=== PATIENT | female | born 1975 | race Caucasian/White ===

== ENCOUNTER 2018-08-04 06:11 | Observation (INO) | payer OTHER ==
[2018-08-03 13:15] VITALS: BMI 25.3
[2018-08-04] MEDS ORDERED: LIDOCAINE HCL/PF 2% SDV 5ML VIAL ONE (07:46)
[2018-08-04] MEDS ORDERED: PROPOFOL 20 ML ONE (07:46)
[2018-08-04] MEDS ORDERED: MIDAZOLAM HCL 2 MG/2 ML SINGLE DOSE VIAL ONE (07:47)
--- NOTE | 2018-08-04 07:56 | HP ---
Admitting History and Physical - Admission Chief Complaint: Prolonged and heavy menses History of Present Illness: 42 yo Para 3 with h/o prolonged and heavy menses is pre op for endometrial ablation. History Source: Patient Limitations to Obtaining History: No Limitations - Past Medical History ...LMP: 08/02/18 ...: No ...: 4 ...Para: 3 - Past Surgical History Past Surgical History: Yes: Cholecystectomy, Tubal Ligation - Smoking History Smoking history: Never smoked Have you smoked in the past 12 months: No - Alcohol/Substance Use Hx Alcohol Use: No History of Substance Use: reports: None - Social History History of Recent Travel: No Home Medications - Allergies Allergies/Adverse Reactions: Allergies Allergy/AdvReac Type Severity Reaction Status Date / Time No Known Drug Allergies Allergy Verified 08/03/18 13:19 shrimp Allergy Verified 08/04/18 06:53 - Home Medications Home Medications: Ambulatory Orders Cyanocobalamin [Vitamin B12 -] 1,000 mcg PO DAILY 08/03/18 Ferrous Sulfate [Iron] 325 mg PO BID 08/03/18 Multivit-Min/Iron/Folic/[id number] [Hair, Skin and Nails Tablet] 1 each PO DAILY 05/15 Family Disease History - Family Disease History Family History: Unremarkable Review of Systems - Review of Systems Constitutional: reports: No Symptoms Eyes: reports: No Symptoms HENT: reports: No Symptoms Neck: reports: No Symptoms Cardiovascular: reports: No Symptoms Respiratory: reports: No Symptoms Gastrointestinal: reports: No Symptoms Genitourinary: reports: Vaginal Bleeding Breasts: reports: No Symptoms Reported Musculoskeletal: reports: No Symptoms Integumentary: reports: No Symptoms Neurological: reports: No Symptoms Endocrine: reports: No Symptoms Hematology/Lymphatic: reports: No Symptoms Psychiatric: reports: No Symptoms Pain Intensity: 0 Physical Examination Constitutional: Yes: Well Nourished Eyes: Yes: Conjunctiva Clear HENT: Yes: Atraumatic Neck: Yes: Supple Cardiovascular: Yes: Regular Rate and Rhythm Respiratory: Yes: Regular Gastrointestinal: Yes: Normal Bowel Sounds ...Rectal Exam: Yes: WNL Renal/: Yes: WNL Breast(s): Yes: WNL Musculoskeletal: Yes: WNL Extremities: Yes: WNL Neurological: Yes: Alert, Oriented ...Motor Strength: WNL Psychiatric: Yes: Alert, Oriented Problem List - Problems (1) Menorrhagia with regular cycle Code(s): N92.0 - EXCESSIVE AND FREQUENT MENSTRUATION WITH REGULAR CYCLE Assessment/Plan Menorrhagia Pre op for endometrial ablation Consent signed Anesthesia to see patient
[2018-08-04] MEDS ORDERED: KETOROLAC TROMETHAMINE 30 MG/1 ML VIAL ONE (08:13)
[2018-08-04] MEDS ORDERED: DEXAMETHASONE SOD PHOSPHATE 4 MG/1 ML VIAL ONE (08:13)
[2018-08-04] MEDS ORDERED: ONDANSETRON 4 MG/2 ML VIAL ONE (08:13)
--- NOTE | 2018-08-04 08:53 | OP ---
Operative Note - Note: Operative Date: 08/04/18 Pre-Operative Diagnosis: Menorrhagia Operation: Hysteroscopic endometrial ablation Post-Operative Diagnosis: Same as Pre-op Surgeon: Erica Camarillo Anesthesia: General Specimens Removed: None Estimated Blood Loss (mls): 5
[2018-08-04] MEDS ORDERED: ACETAMINOPHEN 325 MG TABLET (FP) PO PRN ×2 (08:59→14:59)
[2018-08-04] MEDS ORDERED: ONDANSETRON 4 MG/2 ML VIAL IVPUSH PRN ×2 (08:59→14:59)
[2018-08-04] MEDS ORDERED: oxyCODONE HCL 5 MG TABLET PO PRN ×2 (08:59→14:59)
[2018-08-04] MEDS ORDERED: LACTATED RINGERS SOLUTION 1,000 ML IV SCH (09:00)
[2018-08-04] MEDS ORDERED: NALOXONE HCL 0.4 MG/ML VIAL ONE (09:25)
--- NOTE | 2018-08-04 11:30 | EKG ---
Test Reason : Blood Pressure : / mmHG Vent. Rate : 070 BPM Atrial Rate : 070 BPM P-R Int : 132 ms QRS Dur : 070 ms QT Int : 408 ms P-R-T Axes : 038 -06 -09 degrees QTc Int : 440 ms NORMAL SINUS RHYTHM LOW VOLTAGE QRS POSSIBLE INFERIOR INFARCT , AGE UNDETERMINED NONSPECIFIC T WAVE ABNORMALITY ABNORMAL ECG NO PREVIOUS ECGS AVAILABLE Confirmed by ELLE FERRARA MD ([id number]) on 08/04/2018 11:29:46 AM Referred By: Erica Camarillo Confirmed By:ELLE FERRARA MD
--- NOTE | 2018-08-04 11:38 | CON.CARD ---
Consult Consult Specialty:: Cardiology Reason for Consultation:: hyoxia, new ekg changes - History of Present Illness History of Present Illness: 42 yo Para 3 with h/o prolonged and heavy menses s/p endometrial ablation developed hypoxia requiring narcan and ambu ventilation developed new ekg changes on tele. ekg inverted t waves V3 -V4 - no old one to compare.. 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, CVA, Dementia, Migraine, Multiple Sclerosis, Peripheral Neuropathy, Parkinson's, Seizure, Syncope, TIA, Vertigo, Other Cardio/Vascular: No: AFIB, Aneurysm, Aortic Insufficiency, Aortic Stenosis, CAD , CHF, Deep Vein Thrombosis, HTN, Hyperlipdemia, CT, Mitral Insufficiency, Mitral Stenosis, Murmur, Pulmonary Hypertension, Other Pulmonary: No: Asthma, Bronchitis, Cancer, COPD, O2 Dependent, Pneumonia, Previously Intubated, Pulmonary Embolus, Pulmonary Fibrosis, Sleep Apnea, Other Gastrointestinal: No: Ascites, Cancer, Constipation, Crohn's Disease, Diverticulitis, Diverticulosis, Esophageal Varices, Gastritis, GERD, GI Bleed, Hemorrhoids, Hiatal Hernia, Inflamatory Bowel Disease, Irritable Bowel Disease, Pancreatitis, Peptic Ulcer Disease, Ulcerative Colitis, Other Hepatobiliary: No: Cirrhosis, Cholelithiasis, Cholecystitis, Choledocholithiasis , Hepatitis A, Hepatitis B, Hepatitis C, Other Renal/: No: Renal Failure, Renal Inusuff, BPH, Cancer, Hematuria, Hemodialysis , Neurogenic Bladder, Renal Calculi, UTI, Other Reproductive: No: Ectopic , Endometriosis, Fibroids, PID, Polycystic Ovary Syndrome, Postmenopausal, Other ...LMP: 08/02/18 ...: No Heme/Onc: No: Anemia, B12 Deficiency, Bleeding Disorder, Cancer, Current Chemotherapy, Current Radiation Therapy, Hemochromatosis, Hypercoaguable State, Myeloproliferative Synd, Sickle Cell Disease, Sickle Cell Trait, Thrombocytopenia, Other Infectious Disease: No: AIDS, C-Diff, Herpes Zoster, HIV, MRSA, STD's, Tuberculosis, VREF, Other Psych: No: Addictions, Anxiety, Bipolar, Depression, Panic, Psychosis, Schizophrenia, Other Musculoskeletal: No: Bursitis, Chronic low back pain, Hemiparesis, Hemiplegia, Osteoarthritis, Paraplegia, Other Rheumatology: No: Fibromyalgia, Gout, Lupus, Rheumatoid Arthritis, Sarcoidosis, Vasculitis, Other ENT: No: Allergic Rhinitis, Sinusitis, Other Endocrine: No: [place]'s Disease, Faisal's Disease, Diabetes Insipidus, Diabetes Mellitus, Hyperparathyroidism, Hyperthyroidism, Hypothyroidism, Osteopenia, SIADH, Other Dermatology: No: Basal Cell, Cellulitis, Eczema, Melanoma, Psoriasis, Squamous Cell, Other - Past Surgical History Past Surgical History: Yes: Cholecystectomy, Tubal Ligation - Alcohol/Substance Use Hx Alcohol Use: No History of Substance Use: reports: None - Smoking History Smoking history: Never smoked Have you smoked in the past 12 months: No - Social History History of Recent Travel: No Home Medications - Allergies Allergies/Adverse Reactions: Allergies Allergy/AdvReac Type Severity Reaction Status Date / Time No Known Drug Allergies Allergy Verified 08/03/18 13:19 shrimp Allergy Verified 08/04/18 06:53 - Home Medications Home Medications: Ambulatory Orders Cyanocobalamin [Vitamin B12 -] 1,000 mcg PO DAILY 08/03/18 Ferrous Sulfate [Iron] 325 mg PO BID 08/03/18 Multivit-Min/Iron/Folic/Lie364 [Hair, Skin and Nails Tablet] 1 each PO DAILY 05/15 Review of Systems - Review of Systems Constitutional: reports: No Symptoms Eyes: reports: No Symptoms HENT: reports: No Symptoms Neck: reports: No Symptoms Cardiovascular: reports: Chest Pain (occasional cp on and off) Respiratory: reports: No Symptoms Gastrointestinal: reports: No Symptoms Genitourinary: reports: No Symptoms Breasts: reports: No Symptoms Reported Musculoskeletal: reports: No Symptoms Integumentary: reports: No Symptoms Neurological: reports: No Symptoms Endocrine: reports: No Symptoms Hematology/Lymphatic: reports: No Symptoms Psychiatric: reports: No Symptoms Vital Signs: VSS Constitutional: Yes: Well Nourished, No Distress, Calm Eyes: Yes: WNL, Conjunctiva Clear, EOM Intact HENT: Yes: WNL, Atraumatic, Normocephalic Neck: Yes: WNL, Supple, Trachea Midline Respiratory: Yes: WNL, Regular, CTA Bilaterally Gastrointestinal: Yes: WNL, Normal Bowel Sounds Renal/: Yes: WNL Cardiovascular: Yes: WNL, Regular Rate and Rhythm Musculoskeletal: Yes: WNL Extremities: Yes: WNL Integumentary: Yes: WNL Neurological: Yes: WNL, Alert, Oriented ...Motor Strength: WNL Psychiatric: Yes: WNL, Alert, Oriented Imaging - Results EKG: Image Reviewed (sr inverted t wave v3 rep abn V4) Problem List - Problems (1) Menorrhagia with regular cycle Code(s): N92.0 - EXCESSIVE AND FREQUENT MENSTRUATION WITH REGULAR CYCLE Assessment/Plan 42 yo Para 3 with h/o prolonged and heavy menses s/p endometrial ablation developed hypoxia requiring narcan and ambu ventilation developed new ekg changes on tele. ekg inverted t waves V3 -V4 - no old one to compare. Plan echo r/o mi tele if stable can be d/c in am and f/u for ECHO ST as outpatient.
--- NOTE | 2018-08-04 14:09 | CONSULT ---
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 EKG shows inverted T waves in v3, v4. - History Source History Provided By: Patient Limitations to Obtaining History: No Limitations - Past Medical History ...LMP: 08/02/18 ...: No Heme/Onc: Yes: Anemia - Past Surgical History Past Surgical History: Yes: Cholecystectomy, Tubal Ligation - Alcohol/Substance Use Hx Alcohol Use: No History of Substance Use: reports: None - Smoking History Smoking history: Never smoked Have you smoked in the past 12 months: No - Social History Usual Living Arrangement: With Child ADL: Independent Occupation: school aid History of Recent Travel: No Home Medications - Allergies Allergies/Adverse Reactions: Allergies Allergy/AdvReac Type Severity Reaction Status Date / Time No Known Drug Allergies Allergy Verified 08/03/18 13:19 shrimp Allergy Verified 08/04/18 06:53 - Home Medications Home Medications: Ambulatory Orders Cyanocobalamin [Vitamin B12 -] 1,000 mcg PO DAILY 08/03/18 Ferrous Sulfate [Iron] 325 mg PO BID 08/03/18 Multivit-Min/Iron/Folic/Xuk201 [Hair, Skin and Nails Tablet] 1 each PO DAILY 05/15 Review of Systems - Review of Systems Constitutional: reports: Lethargy Eyes: reports: No Symptoms HENT: reports: No Symptoms Neck: reports: No Symptoms Cardiovascular: reports: No Symptoms Respiratory: reports: No Symptoms Gastrointestinal: reports: No Symptoms Genitourinary: reports: No Symptoms Musculoskeletal: reports: No Symptoms Integumentary: reports: No Symptoms Neurological: reports: No Symptoms Endocrine: reports: No Symptoms Hematology/Lymphatic: reports: No Symptoms Psychiatric: reports: No Symptoms Physical Exam Vital Signs: Vital Signs Temperature 97.7 F 08/04/18 08:49 Pulse Rate 69 08/04/18 12:35 Respiratory Rate 18 08/04/18 12:35 Blood Pressure 106/65 08/04/18 12:35 O2 Sat by Pulse Oximetry (%) 98 08/04/18 12:35 Constitutional: Yes: Calm Eyes: Yes: Conjunctiva Clear HENT: Yes: Atraumatic Neck: Yes: Supple Cardiovascular: Yes: Regular Rate and Rhythm, S1, S2 Respiratory: Yes: Regular, CTA Bilaterally, On Nasal O2 Gastrointestinal: Yes: Normal Bowel Sounds, Soft Renal/: Yes: Vaginal Bleeding (scant on abd pad) Musculoskeletal: Yes: WNL Edema: No Neurological: Yes: Alert, Oriented, Cran Nerves II-XII Intact Imaging - Results EKG: Report Reviewed Assessment/Plan Assessment: 42 year old female admitted with EKG changes Plan: 1. EKG changes - ECHO done, report pending - Serial cardiac enzymes r/o mi - If above work up neg can DC home with ECHO CT as outpt - Cardiac monitoring - Cardiology consulted appreciated Visit type - Emergency Visit Emergency Visit: Yes Care time: The patient presented to the Emergency Department on the above date and was hospitalized for further evaluation of their emergent condition. - New Patient This patient is new to me today: Yes Date on this admission: 08/04/18 - Critical Care Critical Care patient: No
--- NOTE | 2018-08-04 15:30 | HP ---
Admitting History and Physical - Admission History of Present Illness: This is a 42 year old female Para 3 with pmhx of anemia, metomenorrhagia, admitted after endometrial ablation. 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 EKG shows inverted T waves in v3, v4. History Source: Patient Limitations to Obtaining History: No Limitations - Past Medical History ...LMP: 08/02/18 ...: No ...: 4 ...Para: 3 Heme/Onc: Yes: Anemia - Past Surgical History Past Surgical History: Yes: Cholecystectomy, Tubal Ligation - Smoking History Smoking history: Never smoked Have you smoked in the past 12 months: No - Alcohol/Substance Use Hx Alcohol Use: No History of Substance Use: reports: None - Social History ADL: Independent Occupation: school aid History of Recent Travel: No Home Medications - Allergies Allergies/Adverse Reactions: Allergies Allergy/AdvReac Type Severity Reaction Status Date / Time No Known Drug Allergies Allergy Verified 08/03/18 13:19 shrimp Allergy Verified 08/04/18 06:53 - Home Medications Home Medications: Ambulatory Orders Cyanocobalamin [Vitamin B12 -] 1,000 mcg PO DAILY 08/03/18 Ferrous Sulfate [Iron] 325 mg PO BID 08/03/18 Multivit-Min/Iron/Folic/Rxy966 [Hair, Skin and Nails Tablet] 1 each PO DAILY 05/15 Review of Systems Findings/Remarks: - Review of Systems Constitutional: reports: Lethargy Eyes: reports: No Symptoms HENT: reports: No Symptoms Neck: reports: No Symptoms Cardiovascular: reports: No Symptoms Respiratory: reports: No Symptoms Gastrointestinal: reports: No Symptoms Genitourinary: reports: No Symptoms Musculoskeletal: reports: No Symptoms Integumentary: reports: No Symptoms Neurological: reports: No Symptoms Endocrine: reports: No Symptoms Hematology/Lymphatic: reports: No Symptoms Psychiatric: reports: No Symptoms Physical Examination Vital Signs: Vital Signs Temperature 97.7 F 08/04/18 08:49 Pulse Rate 69 08/04/18 15:05 Respiratory Rate 18 08/04/18 15:05 Blood Pressure 96/57 08/04/18 15:05 O2 Sat by Pulse Oximetry (%) 100 08/04/18 15:05 Findings/Remarks: PE Constitutional: Yes: Calm Eyes: Yes: Conjunctiva Clear HENT: Yes: Atraumatic Neck: Yes: Supple Cardiovascular: Yes: Regular Rate and Rhythm, S1, S2 Respiratory: Yes: Regular, CTA Bilaterally, On Nasal O2 Gastrointestinal: Yes: Normal Bowel Sounds, Soft Renal/: Yes: Vaginal Bleeding (scant on abd pad) Musculoskeletal: Yes: WNL Edema: No Neurological: Yes: Alert, Oriented, Cran Nerves II-XII Intact Assessment/Plan Assessment: 42 year old female admitted with EKG changes Plan: 1. EKG changes - ECHO done, report pending - Serial cardiac enzymes r/o mi - If above work up neg can DC home with ECHO CT as outpt - Cardiac monitoring - Cardiology consulted appreciated Visit type - Emergency Visit Emergency Visit: No - New Patient This patient is new to me today: Yes Date on this admission: 08/04/18 - Critical Care Critical Care patient: No Hospitalist Screening - Colonoscopy Questionnaire Colonoscopy Questionnaire: Colonoscopy Questionnaire - Patient: 50 - 75 years old and never had a screening colonoscopy: Unknown History of colon or rectal polyps, or CA: Unknown History of IBD, Crohn's disease or UC: Unknown History of abdominal radiation therapy as a child: Unknown - Relative: 1 with colon or rectal CA, or polyps at age 60 or younger: Unknown Colon or rectal CA diagnosed at age 45 or younger: Unknown Multiple relatives with colon or rectal CA: Unknown - Outcome: Screening Result: Negative Screen
[2018-08-04] MEDS: LACTATED RINGERS SOLUTION 1,000 ML IV SCH ×2 (18:22→23:24)
[2018-08-04] MEDS: FERROUS SO4 325 MG TABLET (FP) PO SCH (21:15)
[2018-08-05 07:03] LABS: BASO % 0.6 % (0-2.0); EOS % 0.6 % (0-4.5); HEMATOCRIT 30.4 % (32.4-45.2); HEMOGLOBIN 9.7 GM/dL (10.7-15.3); LYMPH % 22.7 % (8-40); MCH 23.4 pg (25.7-33.7); MCHC 31.9 g/dl (32.0-36.0); MEAN CELL VOLUME 73.5 fl (80-96); MEAN PLT VOLUME 7.8 fl (7.5-11.1); MONO % 6.7 % (3.8-10.2); NEUT % 69.4 % (42.8-82.8); PLATELET COUNT 339 K/MM3 (134-434); RBC 4.14 M/mm3 (3.60-5.2); WHITE BLOOD COUNT 8.2 K/mm3 (4.0-10.0)
[2018-08-05 07:30] LABS: MAGNESIUM 1.9 mg/dL (1.8-2.4)
[2018-08-05 07:31] LABS: CHOLESTEROL 162 mg/dL (50-200); TRIGLYCERIDES 82 mg/dL (35-160)
[2018-08-05 07:32] LABS: HDL CHOLESTEROL 43 mg/dL (40-60)
--- NOTE | 2018-08-05 08:42 | PN ---
Progress Note, Physician Chief Complaint: seen and examined this AM in coverage for Concetta She complains of pleuritic CP Echo yest- normal with no pericardial effusion and no evidence of PHTN or R heart enlargement CK and TnI negative x 3 History of Present Illness: TELE: Sinus jorge. ECG reviewed- NSR 70bpm with nonspecific T wave changes V3, V4 - Current Medication List Current Medications: Active Medications Acetaminophen (Tylenol -) 650 mg PO Q4H PRN PRN Reason: Pain-PACU ORDER X 2 DOSES ONLY Last Admin: 08/04/18 23:24 Dose: 650 mg Ferrous Sulfate (Feosol -) 325 mg PO BID [facility] Last Admin: 08/04/18 21:15 Dose: 325 mg Lactated Ringer's (Lactated Ringers Solution) 1,000 mls @ 125 mls/hr IV ASDIR GERONIMO Last Admin: 08/04/18 23:24 Dose: 125 mls/hr Ondansetron HCl (Zofran Injection) 4 mg IVPUSH Q6H PRN PRN Reason: NAUSEA AND/OR VOMITING Oxycodone HCl (Roxicodone -) 5 mg PO Q4H PRN PRN Reason: PAIN LEVEL 1-5 Last Admin: 08/04/18 23:26 Dose: 5 mg - Objective Vital Signs: Vital Signs Temperature 98.0 F 08/05/18 06:00 Pulse Rate 55 L 08/05/18 06:00 Respiratory Rate 20 08/05/18 06:00 Blood Pressure 105/62 08/05/18 06:00 O2 Sat by Pulse Oximetry (%) 100 08/04/18 18:20 Constitutional: Yes: No Distress, Calm Eyes: Yes: Conjunctiva Clear Cardiovascular: Yes: Regular Rate and Rhythm, Other (no murmurs) Respiratory: Yes: CTA Bilaterally (at bases, some atelectatic sounds that clear with cough) Gastrointestinal: Yes: Soft Edema: No Neurological: Yes: Alert, Oriented Labs: CBC, BMP 08/05/18 06:20 Laboratory Tests 08/04/18 08/04/18 08/05/18 12:59 19:40 06:20 WBC Hgb Plt Count Troponin I < 0.02 < 0.02 < 0.02 08/05/18 06:20 WBC 8.2 Hgb 9.7 L Plt Count 339 Troponin I - ....Imaging EKG: Image Reviewed Assessment/Plan IMP: S/p Endometrial ablation Hypoxia requiring Narcan Nonspecific ECG changes with negative enzyme and normal Echo Pleurisy sx REC: 1. CXR 2. Pulmonary consult Low suspicion for PE given no tachycardia and good O2 saturations. Cont tele Further reccs pending above.
[2018-08-05] MEDS ORDERED: ALBUTEROL SO4 8 GM HFA INHALER IH PRN (09:02)
--- NOTE | 2018-08-05 09:08 | CON.PULM ---
Consult Consult Specialty:: PULMONARY Referred by:: SARAH Reason for Consultation:: HYPOXEMIA POST OP - History of Present Illness Chief Complaint: COUGH WITH DEEP BREATH History of Present Illness: 42 CZECH NONSMOKING FEMALE WITH H/O STABLE ASTHMA. PRESENTLY NOT ON INHALERS. ADMITTED POST ENDOMETRIAL ABLATION WHEN FOUND TO BE HYPOXEMIC POST-OP. PATIENT WAS GIVEN NARCAN AND IMPROVED. NOW COMPLAINING OF COUGHING WHEN TAKING A DEEP BREATH. DENIES CHEST PAIN,SPUTUM PRODUCTION OR FEVER W CHILLS. NO CALF TENDERNESS REPORTED. PATIENT DID HAVE GENERAL ANESTHESIA. 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 No: COPD, O2 Dependent, Pneumonia, Previously Intubated Gastrointestinal: No: Ascites, Cancer, Constipation, Crohn's Disease, Diverticulitis, Diverticulosis, Esophageal Varices, Gastritis, GERD, GI Bleed, Hemorrhoids, Hiatal Hernia, Inflamatory Bowel Disease, Irritable Bowel Disease, Pancreatitis, Peptic Ulcer Disease, Ulcerative Colitis, Other Hepatobiliary: No: Cirrhosis, Cholelithiasis, Cholecystitis, Choledocholithiasis , Hepatitis A, Hepatitis B, Hepatitis C, Other Renal/: No: Renal Failure, Renal Inusuff, BPH, Cancer, Hematuria, Hemodialysis , Neurogenic Bladder, Renal Calculi, UTI, Other ...LMP: 08/02/18 ...: No Heme/Onc: Yes: Anemia Infectious Disease: No: AIDS, C-Diff, Herpes Zoster, HIV, MRSA, STD's, Tuberculosis, VREF, Other Psych: Yes: Anxiety Musculoskeletal: No: Bursitis, Chronic low back pain, Hemiparesis, Hemiplegia, Osteoarthritis, Paraplegia, Other Rheumatology: No: Fibromyalgia, Gout, Lupus, Rheumatoid Arthritis, Sarcoidosis, Vasculitis, Other ENT: No: Allergic Rhinitis, Sinusitis, Other Endocrine: No: [place]'s Disease, Faisal's Disease, Diabetes Insipidus, Diabetes Mellitus, Hyperparathyroidism, Hyperthyroidism, Hypothyroidism, Osteopenia, SIADH, Other Dermatology: No: Basal Cell, Cellulitis, Eczema, Melanoma, Psoriasis, Squamous Cell, Other - Past Surgical History Past Surgical History: Yes: Cholecystectomy, Tubal Ligation - Alcohol/Substance Use Hx Alcohol Use: No History of Substance Use: reports: None - Smoking History Smoking history: Never smoked Have you smoked in the past 12 months: No - Social History Usual Living Arrangement: With Child ADL: Independent Occupation: school aid History of Recent Travel: Yes ([place] REPORTED RECENT ILLNESS) Home Medications - Allergies Allergies/Adverse Reactions: Allergies Allergy/AdvReac Type Severity Reaction Status Date / Time No Known Drug Allergies Allergy Verified 08/03/18 13:19 shrimp Allergy Verified 08/04/18 06:53 - Home Medications Home Medications: Ambulatory Orders Cyanocobalamin [Vitamin B12 -] 1,000 mcg PO DAILY 08/03/18 Ferrous Sulfate [Iron] 325 mg PO BID 08/03/18 Multivit-Min/Iron/Folic/Xnm930 [Hair, Skin and Nails Tablet] 1 each PO DAILY 05/15 Family Disease History - Family Disease History Family History: Unremarkable Review of Systems - Review of Systems Constitutional: denies: Chills, Fever Eyes: denies: Blind Spots HENT: denies: Difficult Swallowing Neck: denies: Decreased ROM Cardiovascular: denies: Chest Pain Respiratory: reports: Cough. denies: Hemoptysis, SOB on Exertion, Wheezing Gastrointestinal: denies: Abdominal Pain Genitourinary: denies: Burning Breasts: reports: No Symptoms Reported Physical Exam Vital Sings: Vital Signs Temperature 98.0 F 08/05/18 06:00 Pulse Rate 55 L 08/05/18 06:00 Respiratory Rate 20 08/05/18 06:00 Blood Pressure 105/62 08/05/18 06:00 O2 Sat by Pulse Oximetry (%) 100 08/04/18 18:20 Constitutional: Yes: Calm Eyes: Yes: EOM Intact HENT: Yes: Normocephalic Neck: Yes: Trachea Midline Cardiovascular: Yes: Regular Rate and Rhythm Respiratory: Yes: CTA Bilaterally Gastrointestinal: Yes: Soft Edema: No Neurological: Yes: Alert Labs: CBC, BMP 08/05/18 06:20 REST REVIEWED Imaging - Results Chest X-ray: Pending EKG: Report Reviewed Problem List - Problems (1) Menorrhagia with regular cycle Code(s): N92.0 - EXCESSIVE AND FREQUENT MENSTRUATION WITH REGULAR CYCLE (2) Hypoxemia requiring supplemental oxygen Code(s): R09.02 - HYPOXEMIA; Z99.81 - DEPENDENCE ON SUPPLEMENTAL OXYGEN (3) Hypoxemia during surgery Code(s): R09.02 - HYPOXEMIA; I97.88 - OTH INTRAOPERATIVE COMPLICATIONS OF THE CIRC SYS, NEC (4) Asthma Code(s): J45.909 - UNSPECIFIED ASTHMA, UNCOMPLICATED Assessment/Plan TRANSIENT HYPOXEMIA POST-OP GENERAL ANESTHESIA RESPONDED TO NARCAN H/O BRONCHIAL ASTHMA NOT IN EXACERBATION CARDIAC WORKUP THUS FAR NEGATIVE NOW WITH COUGH WHEN TAKING A DEEP BREATH(?ETT) LOW INDEX OF SUSPICION FOR PE TRANSIENT HYPOXEMIA LIKELY RELATED TO GENERAL ANESTHESIA AND HYPOVENTILATION WILL OBTAIN CXR THIS AM CHECK SPO2 PRE/POST AMB OFF O2 CHECK D-DIMER(HELPFUL IF NEGATIVE) FURTHER COMMENTS TO FOLLOW Sergio MARSHALL MD
--- NOTE | 2018-08-05 09:18 | PN ---
Physical Exam: SUBJECTIVE: Patient seen and examined at the bedside. OBJECTIVE: tele: sinus rhythm on tele ekg: sr with possible anterior infarct, t dep on v1,v3,v4 still having chest pressure incentive spirometer Vital Signs Period Temp Pulse Resp BP Sys/Car Pulse Ox Last 24 Hr 98.0 F-98.5 F 55-79 16-20 91-135/20-83 96-100 GENERAL: The patient is awake, alert, and fully oriented, in no acute distress. HEAD: Normal with no signs of trauma. EYES: PERRL, extraocular movements intact, sclera anicteric, conjunctiva clear. No ptosis. ENT: Ears normal, nares patent, oropharynx clear without exudates, moist mucous membranes. NECK: Trachea midline, full range of motion, supple. LUNGS: clear to auscultation, HEART: Regular rate and rhythm, ABDOMEN: Soft, nontender, nondistended, normoactive bowel sounds, no guarding, no rebound, no hepatosplenomegaly, no masses. EXTREMITIES: no edema. Laboratory Results - last 24 hr 08/04/18 08/04/18 08/05/18 12:59 19:40 06:20 WBC RBC Hgb Hct MCV MCH MCHC RDW Plt Count MPV Absolute Neuts (auto) Neutrophils % Lymphocytes % Monocytes % Eosinophils % Basophils % Nucleated RBC % Magnesium Creatine Kinase 120 115 Troponin I < 0.02 < 0.02 Triglycerides 82 Cholesterol 162 Total LDL Cholesterol 115 H HDL Cholesterol 43 08/05/18 08/05/18 06:20 06:20 WBC 8.2 RBC 4.14 Hgb 9.7 L Hct 30.4 L MCV 73.5 L MCH 23.4 L MCHC 31.9 L RDW 31.0 H Plt Count 339 MPV 7.8 Absolute Neuts (auto) 5.7 Neutrophils % 69.4 Lymphocytes % 22.7 Monocytes % 6.7 Eosinophils % 0.6 Basophils % 0.6 Nucleated RBC % 0 Magnesium 1.9 Creatine Kinase 89 Troponin I < 0.02 Triglycerides Cholesterol Total LDL Cholesterol HDL Cholesterol Active Medications Generic Name Dose Route Start Last Admin Trade Name Freq PRN Reason Stop Dose Admin Acetaminophen 650 mg 08/04/18 14:59 08/04/18 23:24 Tylenol - PO 650 mg Q4H PRN Administration Pain-PACU ORDER X 2 DOSES ONLY Albuterol Sulfate 2 puff 08/05/18 09:02 Ventolin Hfa Inhaler - IH Q4H PRN SHORT OF BREATH/WHEEZING Ferrous Sulfate 325 mg 08/04/18 22:00 08/04/18 21:15 Feosol - PO 325 mg BID GERONIMO Administration Lactated Ringer's 1,000 mls @ 125 mls/hr 08/04/18 14:59 08/04/18 23:24 Lactated Ringers Solution IV 125 mls/hr ASDIR GERONIMO Administration Ondansetron HCl 4 mg 08/04/18 14:59 Zofran Injection IVPUSH Q6H PRN NAUSEA AND/OR VOMITING Oxycodone HCl 5 mg 08/04/18 14:59 08/04/18 23:26 Roxicodone - PO 5 mg Q4H PRN Administration PAIN LEVEL 1-5 ASSESSMENT/PLAN: Patient is a 42 year old female with a past medical history of anemia, metomenorrhagia, and asthma. She was admitted after endometrial ablation. Pt was in recovery, and noted to be hypoxic post surgery and was given narcan and ambu bagged. Patient was then noted to have ekg changes after event. Echo: left vent systolic fx is normal, ef 55-60%, right warren normal in size and fx.mild mr, mild tr, no pericardial effusion. pulm: Hypoxia/shortness of breath post op. COPD/asthma exacerbation vs. effects of anethesia post op vs. PE. Patient was ambu bagged and given narcan with good response. Noted do have t wave changes on leads v3, v4. echo as noted above, troponins negative. NSR on steel pourer. Still having chest discomfort but improving. Cardiology and pulmonary following. Noted to have elevated d dimer. low suspicion for PE per pulmonary. echo noted above. Chest CT w/o ordered. fen tolerating PO monitor electrolytes low salt diet prophy SCDs incentive spirometer Visit type - Emergency Visit Emergency Visit: Yes ED Registration Date: 08/04/18 Care time: The patient presented to the Emergency Department on the above date and was hospitalized for further evaluation of their emergent condition. - New Patient This patient is new to me today: Yes Date on this admission: 08/05/18 - Critical Care Critical Care patient: No - Discharge Referral Referred to [facility] Med P.C.: No
[2018-08-05] MEDS: FERROUS SO4 325 MG TABLET (FP) PO SCH ×2 (09:41→22:59)
[2018-08-05 12:08] LABS: ALBUMIN 3.3 g/dl (3.4-5.0); ALK PHOS 87 U/L (45-117); ANION GAP 8 MMOL/L (8-16); BILIRUBIN,TOTAL 0.5 mg/dL (0.2-1.0); BLOOD UREA NITROGEN 6 mg/dL (7-18); CALCIUM 8.6 mg/dL (8.5-10.1); CHLORIDE 108 mmol/L (98-107); CO2 27 mmol/L (21-32); CREATININE 0.5 mg/dL (0.55-1.02); GLUCOSE,RANDOM 104 mg/dL (74-106); POTASSIUM 3.6 mmol/L (3.5-5.1); SGOT/AST 42 U/L (15-37); SGPT/ALT 42 U/L (12-78); SODIUM 143 mmol/L (136-145); TOT PROT 6.6 g/dl (6.4-8.2)
[2018-08-05] MEDS ORDERED: LACTATED RINGERS SOLUTION 1,000 ML IV SCH (18:31)
[2018-08-06 06:00] VITALS: BP 92/58; PULSE 54; TEMP 98
--- NOTE | 2018-08-06 09:16 | PN ---
Progress Note, Physician Chief Complaint: feeling much better: no CP, no SOB- comfortable TELE: Sinus jorge CT without contrast: atelectasis, no clear infiltrate - Current Medication List Current Medications: Active Medications Acetaminophen (Tylenol -) 650 mg PO Q4H PRN PRN Reason: Pain-PACU ORDER X 2 DOSES ONLY Last Admin: 08/04/18 23:24 Dose: 650 mg Albuterol Sulfate (Ventolin Hfa Inhaler -) 2 puff IH Q4H PRN PRN Reason: SHORT OF BREATH/WHEEZING Ferrous Sulfate (Feosol -) 325 mg PO BID [facility] Last Admin: 08/05/18 22:59 Dose: 325 mg Lactated Ringer's (Lactated Ringers Solution) 1,000 mls @ 75 mls/hr IV ASDIR [facility] Last Admin: 08/05/18 18:41 Dose: 75 mls/hr Ondansetron HCl (Zofran Injection) 4 mg IVPUSH Q6H PRN PRN Reason: NAUSEA AND/OR VOMITING Oxycodone HCl (Roxicodone -) 5 mg PO Q4H PRN PRN Reason: PAIN LEVEL 1-5 Last Admin: 08/04/18 23:26 Dose: 5 mg - Objective Vital Signs: Vital Signs Temperature 98.0 F 08/06/18 05:59 Pulse Rate 54 L 08/06/18 05:59 Respiratory Rate 20 08/06/18 05:59 Blood Pressure 92/58 08/06/18 05:59 O2 Sat by Pulse Oximetry (%) 99 08/05/18 11:22 Constitutional: Yes: Calm Eyes: Yes: Conjunctiva Clear Neck: Yes: Trachea Midline, Thyromegaly Respiratory: Yes: CTA Bilaterally Gastrointestinal: Yes: Soft Edema: No Neurological: Yes: Alert, Oriented ...Motor Strength: WNL Labs: CBC, BMP 08/05/18 06:20 08/05/18 06:20 - ....Imaging EKG: Image Reviewed Assessment/Plan IMP: S/p Endometrial ablation Hypoxia requiring Narcan Nonspecific ECG changes with negative enzyme and normal Echo Pleurisy sx REC: 1. CT noted- pulmonary following. Low suspicion for PE due to normal pre and post exercise O2 sat, no tachycardia. 2. Asx sinus jorge- follow as outpatient. Normal echo. No further inpatient work up planned. Coverage for Dr. Hylton
[2018-08-06] MEDS: FERROUS SO4 325 MG TABLET (FP) PO SCH (09:34)
--- NOTE | 2018-08-06 10:23 | DS ---
Physical Exam: SUBJECTIVE: Patient seen and examined, ambulating in room, stable room air oxygenation. Feels better, no further chest pressure. OBJECTIVE: will send home with advair follow up with data center technician outpatient Vital Signs Period Temp Pulse Resp BP Sys/Car Pulse Ox Last 24 Hr 97.9 F-98.2 F 54-74 20-20 92-110/43-65 99-99 PHYSICAL EXAM GENERAL: The patient is awake, alert, and fully oriented, in no acute distress. HEAD: Normal with no signs of trauma. EYES: PERRL, extraocular movements intact, sclera anicteric, conjunctiva clear. No ptosis. ENT: Ears normal, nares patent, oropharynx clear without exudates, moist mucous membranes. NECK: Trachea midline, full range of motion, supple. LUNGS: clear to auscultation, HEART: Regular rate and rhythm, ABDOMEN: Soft, nontender, nondistended, normoactive bowel sounds, no guarding, no rebound, no hepatosplenomegaly, no masses. EXTREMITIES: no edema. LABS Laboratory Results - last 24 hr 08/05/18 08/05/18 06:20 10:55 D-Dimer 913 H Sodium 143 Potassium 3.6 Chloride 108 H Carbon Dioxide 27 Anion Gap 8 BUN 6 L Creatinine 0.5 L Creat Clearance w eGFR > 60 Random Glucose 104 Calcium 8.6 Total Bilirubin 0.5 AST 42 H ALT 42 Alkaline Phosphatase 87 Total Protein 6.6 Albumin 3.3 L HOSPITAL COURSE: Date of Admission:08/04/18 Date of Discharge: 08/06/18 ASSESSMENT/PLAN: Patient is a 42 year old female with a past medical history of anemia, metomenorrhagia, and asthma. She was admitted after endometrial ablation. Pt was in recovery, and noted to be hypoxic post surgery and was given narcan and ambu bagged. Patient was then noted to have ekg changes after event. Echo: left vent systolic fx is normal, ef 55-60%, right warren normal in size and fx.mild mr, mild tr, no pericardial effusion. tele: NSR 70s pulm: Hypoxia/shortness of breath post op. resolved. COPD/asthma exacerbation vs. effects of anethesia post op vs. PE. Troponins negative, no chest pain or pressure. tolerating room air. stable pre and post oxygen sats. NSR ont tele. CT chest noted, patient to continue incentive spirometer and Advair ordered for maintenance. Low suspicion for PE per pulm. Cleared by pulmonary for discharge. discharge home with outpatient data center technician follow up. will also refer to pulmonary outpatient for folllow up. Minutes to complete discharge: 60 Discharge Summary Reason For Visit: MENORRHAGIA Current Active Problems Asthma (Acute) Hypoxemia during surgery (Acute) Hypoxemia requiring supplemental oxygen (Acute) Menorrhagia with regular cycle (Acute) Condition: Stable - Instructions Diet, Activity, Other Instructions: Regular diet No douching, no sexual intercourse x 2 weeks Follow up with MD in 2 weeks New medications: Advair Disposition: HOME - Home Medications Comprehensive Discharge Medication List: Ambulatory Orders Cyanocobalamin [Vitamin B12 -] 1,000 mcg PO DAILY 08/03/18 Ferrous Sulfate [Iron] 325 mg PO BID 08/03/18 Multivit-Min/Iron/Folic/Iua540 [Hair, Skin and Nails Tablet] 1 each PO DAILY 05/15 Albuterol Sulfate Inhaler - [Ventolin HFA Inhaler -] 2 puff IH Q4H PRN inhaler 08/06/18 Salmeterol/Fluticasone [Advair 100Mcg/50Mcg -] 1 inh IH BID #1 inh 08/06/18 This patient is new to me today: No Emergency Visit: Yes ED Registration Date: 08/04/18 Care time: The patient presented to the Emergency Department on the above date and was hospitalized for further evaluation of their emergent condition. Critical Care patient: No - Discharge Referral Referred to [facility] Med P.C.: No
[2018-08-06 10:30] LABS: BASO % 0.6 % (0-2.0); HEMATOCRIT 33.9 % (32.4-45.2); HEMOGLOBIN 10.6 GM/dL (10.7-15.3); LYMPH % 33.4 % (8-40); MCHC 31.3 g/dl (32.0-36.0); MEAN CELL VOLUME 73.7 fl (80-96); MEAN PLT VOLUME 7.8 fl (7.5-11.1); MONO % 6.9 % (3.8-10.2); NEUT % 57.1 % (42.8-82.8); PLATELET COUNT 382 K/MM3 (134-434); RDW 32.1 % (11.6-15.6); WHITE BLOOD COUNT 5.2 K/mm3 (4.0-10.0)
--- NOTE | 2018-08-06 10:38 | PN ---
Progress Note (short form) - Note Progress Note: PULMONARY AWAKE/ALERT OFFERS NO COMPLAINTS VSS ANICTERIC CLEAR B/L LUNG GONZALEZ S1S2 BS+ NO EDEMA LABS/MEDS/NOTES/IMAGES/SPO2 PRE/POST NOTED TRANSIENT HYPOXEMIA POST-OP GENERAL ANESTHESIA RESPONDED TO NARCAN H/O BRONCHIAL ASTHMA NOT IN EXACERBATION CARDIAC WORKUP THUS FAR NEGATIVE LOW INDEX OF SUSPICION FOR PE TRANSIENT HYPOXEMIA LIKELY RELATED TO GENERAL ANESTHESIA AND HYPOVENTILATION WILL BE FOLLOWED AN OUTPATIENT WITH REPEAT CT CHEST TO INSURE RESOLUTION OF ATELECTASIS PATIENT IS AWARE Sergio MARSHALL MD Problem List - Problems (1) Menorrhagia with regular cycle Code(s): N92.0 - EXCESSIVE AND FREQUENT MENSTRUATION WITH REGULAR CYCLE (2) Hypoxemia requiring supplemental oxygen Code(s): R09.02 - HYPOXEMIA; Z99.81 - DEPENDENCE ON SUPPLEMENTAL OXYGEN (3) Hypoxemia during surgery Code(s): R09.02 - HYPOXEMIA; I97.88 - OTH INTRAOPERATIVE COMPLICATIONS OF THE CIRC SYS, NEC (4) Asthma Code(s): J45.909 - UNSPECIFIED ASTHMA, UNCOMPLICATED
[2018-08-06 11:18] LABS: CHLORIDE 106 mmol/L (98-107); POTASSIUM 3.7 mmol/L (3.5-5.1); SODIUM 142 mmol/L (136-145)
[2018-08-06 11:46] LABS: ALBUMIN 3.5 g/dl (3.4-5.0); ALK PHOS 78 U/L (45-117); ANION GAP 11 MMOL/L (8-16); BILIRUBIN,TOTAL 0.3 mg/dL (0.2-1.0); BLOOD UREA NITROGEN 8 mg/dL (7-18); CALCIUM 8.9 mg/dL (8.5-10.1); CO2 25 mmol/L (21-32); CREATININE 0.5 mg/dL (0.55-1.02); GLUCOSE,RANDOM 97 mg/dL (74-106); MAGNESIUM 1.9 mg/dL (1.8-2.4); SGOT/AST 28 U/L (15-37); SGPT/ALT 36 U/L (12-78); TOT PROT 6.9 g/dl (6.4-8.2)
--- NOTE | 2018-08-06 14:18 | OP ---
DATE OF OPERATION: 08/04/2018 PREOPERATIVE DIAGNOSIS: Menorrhagia. POSTOPERATIVE DIAGNOSIS: Menorrhagia. PROCEDURE: Hysteroscopic endometrial ablation. SURGEON: Erica Camarillo MD ANESTHESIA: General. COMPLICATION: None. ESTIMATED BLOOD LOSS: 5 mL. PROCEDURE: The patient was taken to the operating room, where general anesthesia was administered. Patient was then placed in lithotomy position. She was then prepped and draped in proper sterile fashion. A weighted speculum was placed in the vagina. The anterior lip of the cervix was grasped with a single-tooth tenaculum. Then ablation device was then activated. Diagnostic hysteroscopy was then performed. Upon completion of diagnostic hysteroscopy, ablation was initiated. Ablation continued until complete blanching of the endometrial cavity. When finished, the instruments were removed. The patient was taken out of lithotomy position. She was taken to PACU in stable condition. Mario [id number] MTDD
--- NOTE | 2018-08-07 10:45 | EKG ---
Test Reason : Blood Pressure : / mmHG Vent. Rate : 068 BPM Atrial Rate : 068 BPM P-R Int : 128 ms QRS Dur : 080 ms QT Int : 400 ms P-R-T Axes : 060 005 010 degrees QTc Int : 425 ms NORMAL SINUS RHYTHM NORMAL ECG WHEN COMPARED WITH ECG OF 04-AUG-2018 10:23, T WAVE VARIATION Confirmed by KAYKAY ADHIKARI MD ([id number]) on 08/07/2018 10:45:01 AM Referred By: Erica Camarillo Confirmed By:KAYKAY ADHIKARI MD
== END 2018-08-06 13:32 | disposition home or self-care (01) ==
LOC: JASU-SURG 06:11 → JSAMEDAYSX 14:39 → J4S 18:19
PROVIDERS: ADMIT Internal Medicine; ATTEND Nurse Practitioner Family
PROC: 3E013GC Introduction of Other Therapeutic Substance into Subcutaneous Tissue, Percutaneous Approach (ICD-10-PCS; 2018-08-04)
PROC: 0U5B8ZZ Destruction of Endometrium, Via Natural or Artificial Opening Endoscopic (ICD-10-PCS; principal; 2018-08-04 07:30)
PROC: 3E0337Z Introduction of Electrolytic and Water Balance Substance into Peripheral Vein, Percutaneous Approach (ICD-10-PCS; 2018-08-04 07:30)
DX: N92.0 Excessive and frequent menstruation with regular cycle (principal); R94.31 Abnormal electrocardiogram [ECG] [EKG]; R09.02 Hypoxemia; J45.909 Unspecified asthma, uncomplicated; Z91.013 Allergy to seafood
CPT/HCPCS: 36415; 71045-TC-FY; 71250-TC; 80053; 80061; 82550; 83721; 83735; 84484; 84703; 85025; 85379; 86850; 86900; 86901; 93005; 93010; 93306-TC; 94010; 94760; 94761; 96372; G0378